=== PATIENT | male | born 1955 | race Two or more races ===

== ENCOUNTER → 2021-05-09 | Outpatient (CLI) | payer OTHER ==
--- NOTE | 2021-05-09 13:52 | KCIC ---
RS Compliance Statement: One or more of the following individualized dose reduction techniques were utilized for this examinat ion: 1. Automated exposure control 2. Adjustment of the mA and/or kV according to patient size 3. Use of iterative reconstruction technique Coronary calcium score CT chest without contrast History: Hyperlipidemia, family history of CAD. Technique: With retrospective electrocardiogram gating axial reconstructed noncontrast images of the chest at the level of the coronary arteries was performed. Images were post processed on workstation and calcium score calculated using the modified Agatston Janowitz protocol. Findings: Total coronary calcium score is 733. This is an extensive plaque burden and high cardiovasc ular disease risk. This is based on the calcium score of 0 of the left main coronary artery, 285 of t he left anterior descending artery, score of 228 of the left circumflex artery and score of 220.4 of the right coronary artery. 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 Cardiac si ze is normal, no pericardial effusion. Visualized upper abdomen is unremarkable. There is a 5 mm grou ndglass nodule in the right lower lobe, image 23. No follow-up is suggested per Fleischner Society gu idelines. There is minimal atelectasis or scarring in the inferior lingula. No pleural abnormality. B ones unremarkable. IMPRESSION: Patient's total calcium score is 733. Electronically signed by: Ramiro Tuttle MD (05/09/2021 1:50 PM) [id number]
== END ==
LOC: KCIC CT 12:52
PROVIDERS: ATTEND Internal Medicine Cardiovascular Disease
DX: Z13.6 Encounter for screening for cardiovascular disorders (principal); I25.10 Atherosclerotic heart disease of native coronary artery without angina pectoris; E78.5 Hyperlipidemia, unspecified
CPT/HCPCS: 75571